=== PATIENT | female | born 1990 | race Caucasian/White ===

== ENCOUNTER 2020-10-20 17:12 | Emergency (ER) | payer MEDICAID, SELFPAY ==
[~2020-10-20] VITALS: Ht 157.5 cm; Wt 68.0 kg
[2020-10-20 17:17] VITALS: BP_SYST 109
[2020-10-20 18:21] LABS: BILIRUBIN,URINE NEGATIVE (NEGATIVE); BLOOD, URINE NEGATIVE (NEGATIVE); CLARITY/URINE CLEAR (CLEAR); GLUCOSE,URINE NEGATIVE (NEGATIVE); KETONES,URINE NEGATIVE (NEGATIVE); LEUKOCYTE ESTERASE ,URINE NEGATIVE (NEGATIVE); NITRITE, URINE NEGATIVE (NEGATIVE); PH,URINE 7.5 (5.0-8.0); PROTEIN URINE NEGATIVE (NEGATIVE); UROBILINOGEN,URINE 0.2 (0.2-1.0)
[2020-10-20 18:22] LABS: COLOR,URINE STRAW (YELLOW)
[2020-10-20 19:22] VITALS: BP_SYST 109
== END 2020-10-20 19:23 | disposition home or self-care (01) ==
LOC: SED 17:12
DX: B34.9 Viral infection, unspecified (principal); Z20.822 Contact with and (suspected) exposure to COVID-19
CPT/HCPCS: 36415; 71045; 81003; 81025; 86403; 86710; 87081; 99284